=== PATIENT | female | born 1965 | race African-American/Black ===

== ENCOUNTER → 2018-12-19 | Day surgery (SDC) | payer OTHER ==
[2018-12-17 13:23] LABS: ANION GAP 11.7 mmol/L (8-16); BLOOD UREA NITROGEN 12 mg/dL (7-26); BUN/CREATININE RATIO 13 (6-25); CALCIUM 9.5 mg/dL (8.4-10.2); CARBON DIOXIDE 29 mmol/L (22-29); CHLORIDE 102 mmol/L (98-107); CREATININE, SERUM 0.89 mg/dL (0.57-1.11); EST GLOMERULAR FILTRATION RATE > 60 ML/MIN (60-); GLUCOSE 86 mg/dL (74-118); POTASSIUM 3.7 mmol/L (3.5-5.1); SODIUM 139 mmol/L (136-145)
[~2018-12-19] MED LIST: BACITRACIN 50,000 UNIT VIAL ONE; BUPIVACAINE 0.25%/EPI 30ML SDV INJ ONE; CEFAZOLIN SOD 1 GM/NS 50ML 100 ML IV ONE; DEXAMETHASONE SOD PHOS INJ 4 MG/ML VIAL ONE; ESTROGENS CONJUGATED VAGINAL CR 45 GM TUBE PV ONE; FENTANYL CITRATE/PF 100MCG/2 ML INJ ONE; GLYCOPYRROLATE INJ 1MG/ 5 ML SYR ONE; HYDROCHLOROTHIA25 MG PO; IOPAMIDOL 610MG/1ML 300 MG/ML VIAL IV ONE; KETOROLAC TROMETHAMINE 30 MG/ML VIAL ONE; LIDOCAINE HCL 2% LOCAL INJ 5 ML SDV VIAL INJ ONE; LOSARTAN POTAS100 MG PO; MIDAZOLAM HCL 2 MG/2 ML VIAL ONE; NEOSTIGMINE 1 MG/ML 10ML VIAL ONE; NEOSTIGMINE 5 MG/5ML SYR ONE; ONDANSETRON HCL INJ 2MG/ML 2ML 2 MG/ML VIAL ONE; PANTOPRAZOLE SO40 MG PO; PLAQUENIL200 MG PO; PROPOFOL IV EMULSION 10 MG/ML 20 ML VIAL ONE; ROCURONIUM BROMIDE 10 MG/ML 5ML VIAL ONE; SEVOFLURANE INHAL SOLN 250 ML PEN BTL ONE; VITAMIN D22000 UNIT PO
--- OUTSIDE RECORDS SUMMARY | 2018-12-19 07:04 | XMS REPORT ---
Author Author [facility] Address Unknown Phone Unavailable Care Team Providers Care Gastroenterology Nurse Name Role Phone Unavailable Unavailable Payers Payer Name Policy Type Policy Number Effective Date Expiration Date Problems This patient has no known problems. Allergies, Adverse Reactions, Alerts This patient has no known allergies or adverse reactions. Medications This patient has no known medications.
[2018-12-19 12:13] VITALS: BP 154/88
--- NOTE | 2018-12-19 22:46 | Operative Report ---
DATE OF PROCEDURE: 12/19/2018 SURGEON: Kyree Balderas MD SERVICE: Urology. PREOPERATIVE DIAGNOSES: 1. Stress urinary incontinence. 2. History of bladder perforation. 3. Obesity. POSTOPERATIVE DIAGNOSES: 1. Stress urinary incontinence. 2. History of bladder perforation. 3. Obesity. OPERATION PERFORMED: 1. Cystogram under fluoroscopy control. 2. Cystoscopy and bilateral retrograde under fluoroscopy control. 3. Interpretation of x-ray, radiologist not present. 4. Supervision of fluoroscopy. 5. Pelvic exam under anesthesia. 6. Mid urethral transobturator sling. WINK CUTTER OPERATOR: None. ANESTHESIA: General. CLINICAL INDICATION NOTE: This is a 52-year-old patient was brought for treatment of stress urinary incontinence. She does have a history of bladder perforation during gynecological procedure. The patient was assessed and found to have stress type of urinary incontinence. There is minimal urge. The procedure and plan are discussed with her. Potential benefits and complications discussed, explained, and accepted. At the same time, assessment for the bladder perforation will be done. DESCRIPTION OF PROCEDURE AND FINDING: After the appropriate level of anesthesia was achieved, the patient was placed in lithotomy position, prepped and draped in a sterile fashion. Cystogram was done under fluoroscopy control. No leakage was identified, no perforation. Bilateral retrograde pyelograms were remarkable. Following this, a Saldana catheter 16-Mongolian was placed and infiltration of the anterior wall of the vagina, entire sides were numbed using Marcaine with epinephrine. Following this, a short incision was made in the mid urethra about less than an inch long. Dissection was then carried to the side toward the obturator fossa on each side. Finger dilation was done as well. Local anesthesia was injected into the obturator fossa on both sides. Following this, TVT-O by Ethicon device was used and the passage was done from below towards obturator fossa from each side. Mosquito was placed on the junction of the two plastic covers. At that point, cystoscopy was done again. No intrinsic lesions were identified in the urethra or bladder. A Saldana catheter was reinserted 16-Mongolian. Bladder was emptied. Adjustment of the tape over a #7 female urethral dilation Hegar. Following this, the excessive tape was excised from the suprapubic area. The wounds were closed with #4-0 absorbable suture, one stitch on each side. Irrigation of the incision was made. No significant bleeding was noticed. The vaginal wall was closed using 2-0 Vicryl running suture. Vaginal packing with ointment was used. Saldana catheter was kept in place. Pelvic exam was done under anesthesia before the vaginal pack. No intrinsic masses, midline or lateral were identified. The patient tolerated procedure well, was transferred in satisfactory condition to recovery room. She will be followed, postop orders and plan were given. MD RONNIE Lock/MODL /[id number]
== END | disposition home or self-care (01) ==
LOC: OR 07:00
PROVIDERS: ATTEND Urology
DX: N39.46 Mixed incontinence (principal); E66.9 Obesity, unspecified; G47.33 Obstructive sleep apnea (adult) (pediatric); M32.9 Systemic lupus erythematosus, unspecified; E78.00 Pure hypercholesterolemia, unspecified; I11.9 Hypertensive heart disease without heart failure; R07.9 Chest pain, unspecified; I83.893 Varicose veins of bilateral lower extremities with other complications; Z91.041 Radiographic dye allergy status; Z01.810 Encounter for preprocedural cardiovascular examination; Z01.812 Encounter for preprocedural laboratory examination; Z68.38 Body mass index [BMI] 38.0-38.9, adult
CPT/HCPCS: 36415; 52005; 57288; 74420; 80048; 93005; C1758; J0690; J1100; J1885; J2001; J2250; J2405; J2704; J3010; J3490; Q9967; J2710

== ENCOUNTER → 2025-01-01 | Day surgery (SDC) | payer OTHER ==
[~2025-01-01] MED LIST changes: +ACETAMINOPHEN 1000 MG/100 ML 100 ML IV ONE; -BACITRACIN 50,000 UNIT VIAL ONE; -BUPIVACAINE 0.25%/EPI 30ML SDV INJ ONE; -CEFAZOLIN SOD 1 GM/NS 50ML 100 ML IV ONE; +DEXAMETHASONE SOD PHOS INJ 4 MG/ML SDV ONE; -DEXAMETHASONE SOD PHOS INJ 4 MG/ML VIAL ONE; -ESTROGENS CONJUGATED VAGINAL CR 45 GM TUBE PV ONE; -GLYCOPYRROLATE INJ 1MG/ 5 ML SYR ONE; -IOPAMIDOL 610MG/1ML 300 MG/ML VIAL IV ONE; -KETOROLAC TROMETHAMINE 30 MG/ML VIAL ONE; -NEOSTIGMINE 1 MG/ML 10ML VIAL ONE; -NEOSTIGMINE 5 MG/5ML SYR ONE; -ROCURONIUM BROMIDE 10 MG/ML 5ML VIAL ONE; +VELTASSA16.8 GM
[2025-01-01] MEDS: CEFAZOLIN SODIUM 2 GM ONE (06:42)
[2025-01-01] MEDS: LACTATED RINGER'S 1,000 ML ONE (06:43)
[2025-01-01] MEDS: FENTANYL CITRATE/PF 100MCG/2 ML INJ ONE (08:10)
[2025-01-01 09:00] VITALS: BP 156/92; PULSE 59; RESP 18; O2SAT 97
== END | disposition home or self-care (01) ==
LOC: OR 05:40
PROVIDERS: ATTEND Orthopaedic Surgery Adult Reconstructive Orthopaedic Surgery
DX: S83.222A Peripheral tear of medial meniscus, current injury, left knee, initial encounter (principal); M17.12 Unilateral primary osteoarthritis, left knee; Z71.82 Exercise counseling; G47.33 Obstructive sleep apnea (adult) (pediatric); I10 Essential (primary) hypertension; I49.9 Cardiac arrhythmia, unspecified; M32.9 Systemic lupus erythematosus, unspecified; E66.01 Morbid (severe) obesity due to excess calories; K21.9 Gastro-esophageal reflux disease without esophagitis; K76.0 Fatty (change of) liver, not elsewhere classified; X58.XXXA Exposure to other specified factors, initial encounter; Z91.048 Other nonmedicinal substance allergy status; Z01.810 Encounter for preprocedural cardiovascular examination; Z79.899 Other long term (current) drug therapy; Z68.34 Body mass index [BMI] 34.0-34.9, adult; Z71.3 Dietary counseling and surveillance
CPT/HCPCS: 29881; 93005; J0131; J1100; J2003; J2250; J2405; J2704; J3010; J7121